=== PATIENT | male | born 1935 | race Caucasian/White ===

== ENCOUNTER 2021-01-21 09:09 | Emergency (ER) | payer OTHER ==
[~2021-01-21] VITALS: Ht 172.7 cm; Wt 82.1 kg
[~2021-01-21 09:09] MED LIST: FINASTERIDE5 MG PO; HYTRIN 5 M5 MG/1 CAP PO; NEURONTIN 300300 M1 PO; TRAMADOL 50 MG50 MG PO; TYLENOL325 MG PO; XARELTO15 MG PO
[2021-01-21 09:29] LABS: ABSOLUTE EOSINOPHILS 0.2 thou/uL (0.0-0.7); ABSOLUTE LYMPHOCYTES 1.7 thou/uL (0.8-5.3); ABSOLUTE MONOCYTES 0.6 thou/uL (0.0-1.2); ABSOLUTE NEUTROPHILS 3.7 thou/uL (1.6-8.1); BASOPHILS 0.7 %; EOSINOPHILS 3.6 %; HEMATOCRIT 36.4 % (42.0-52.0); HEMOGLOBIN 12.7 gm/dL (14.0-18.0); LYMPHOCYTES 26.4 %; MCH 31.8 pg (26.0-34.0); MCHC 34.9 g/dL (28.0-37.0); MCV 91.3 fL (80.0-100.0); MONOCYTES 10.3 %; MPV 6.9 fl. (7.2-11.1); NUCLEATED RBCS 0 /100WBC; PLATELET COUNT* 269 thou/uL (150-400); RBC 3.99 mil/uL (4.50-6.00); RDW-CV 14.3 % (10.5-14.5); WBC 6.3 thou/uL (4.0-11.0)
[2021-01-21] MEDS ORDERED: FLEXERIL PO (09:33)
[2021-01-21] MEDS ORDERED: ELIQUIS2.5 MG PO (09:33)
[2021-01-21 09:38] LABS: CALCIUM 8.3 mg/dL (8.5-10.1); POTASSIUM 3.8 mmol/L (3.5-5.1)
[2021-01-21 09:39] LABS: URINE BILIRUBIN NEGATIVE (Negative); URINE BLOOD NEGATIVE (Negative); URINE CLARITY CLEAR; URINE COLOR YELLOW; URINE GLUCOSE-RANDOM NEGATIVE (Negative); URINE KETONES NEGATIVE (Negative); URINE LEUKOCYTES-REFLEX NEGATIVE (Negative); URINE NITRITE-REFLEX NEGATIVE (Negative); URINE PROTEIN NEGATIVE (Negative); URINE UROBILINOGEN 0.2 E.U./dl (0.2-1.0)
[2021-01-21 09:42] LABS: ALBUMIN 3.5 g/dL (3.4-5.0); TOTAL BILIRUBIN 0.6 mg/dL (<0.1-1.0); TOTAL PROTEIN 6.5 g/dL (6.4-8.2)
[2021-01-21 11:56] VITALS: BP 146/69
--- NOTE | 2021-01-21 13:42 | EKG ---
[place] [address] ELECTROCARDIOGRAM REPORT Name: ROCÍO COURTNEY Room: [facility]#: [id number] Admission: 01/21/21 Attend Phys: Discharge: 01/21/21 Date of : 33 Date of Service: 01/21/21917 Report #: [id number] THIS REPORT FOR: //name// [facility] ED Test Date: 2021-01-21 Test Time: 09:18:35 Pat Name: ROCÍO COURTNEY Department: Room: Gender: [employer]: [facility] : 1935 Requested By: Evan Chew Order Number: [id number] MD: Cy Slade Measurements Intervals [place] Rate: 81 P: 0 NM: 200 QRS: -37 QRSD: 150 T: -1 QT: 418 QTc: 486 Interpretive Statements Sinus rhythm Right bundle branch block No previous ECG available for comparison Electronically Signed On 01-21-2021 13:41:42 CDT by Cy Slade [email or web address] <ELECTRONICALLY SIGNED> By: Cy Slade MD, [facility] 01/21/21 1341 7 7 Cy Slade MD, [facility] /EPI
== END 2021-01-21 11:58 | disposition home or self-care (01) ==
LOC: M.ERS 09:09
PROVIDERS: Family Medicine
DX: R33.9 Retention of urine, unspecified (principal); K59.00 Constipation, unspecified; R41.0 Disorientation, unspecified; R53.1 Weakness; Z79.899 Other long term (current) drug therapy; Z79.890 Hormone replacement therapy